=== PATIENT | female | born 1985 | race Caucasian/White ===

== ENCOUNTER 2018-10-24 09:37 | Outpatient (CLI) | payer OTHER ==
[~2018-10-24] VITALS: Ht 167.6 cm; Wt 68.5 kg
[~2018-10-24 09:37] MED LIST: AMBIEN 5MG TABLE5 MG PO; FISH OIL500 MG PO; FLONASE NASAL S16 GM NS; IBU800 M1 PO; MAGNESIUM100 MG; OSCAL 500 TAB500 MG PO; PRENATAL PLUS PO; SEROQUEL50 MG PO; ST. JOHN'S WOR250 MG PO; VIIBRYD10 MG PO; VITAMIN D1000 IU PO; ZYPREXA2.5 MG PO; ZYRTEC SYRUP1 MG/ML PO
--- NOTE | 2018-10-24 10:24 | NUR ---
This nurse called OB Charge for heart check per [facility] guidlines for women.
[2018-10-24] MEDS ORDERED: UNISOM25 MG PO (11:01)
[2018-10-24] MEDS ORDERED: PROAIR HFA0.09 MG/AC IH (11:02)
[2018-10-24] MEDS ORDERED: TYLENOL 325MG325 MG PO (11:02)
[2018-10-24] MEDS ORDERED: PATADAY 2.5 ML2.5 ML OU (11:03)
[2018-10-24] MEDS ORDERED: VITAMIN B-625 MG PO (11:04)
[2018-10-24 11:07] VITALS: BP 103/59; PULSE 83; TEMP 98.2
[2018-10-24] MEDS ORDERED: CEPHALEXIN500 M1 PO (12:10)
[2018-10-24 12:21] VITALS: BP 106/55; PULSE 72
[2018-10-24 12:44] VITALS: BP 112/68; PULSE 77
--- NOTE | 2018-10-24 12:59 | NUR ---
Discharge instructions given to pt.pt verbalizes understanding.Pt escorted out by this nurse.
== END 2018-10-24 13:02 | disposition home or self-care (01) ==
LOC: COL.CAR 09:37
DX: R55 Syncope and collapse (principal); J45.909 Unspecified asthma, uncomplicated; F29 Unspecified psychosis not due to a substance or known physiological condition; F43.10 Post-traumatic stress disorder, unspecified; Z79.51 Long term (current) use of inhaled steroids; Z82.49 Family history of ischemic heart disease and other diseases of the circulatory system; Z80.9 Family history of malignant neoplasm, unspecified; Z82.61 Family history of arthritis

== ENCOUNTER 2019-10-12 17:39 | Emergency (ER) | payer OTHER ==
[~2019-10-12] VITALS: Ht 167.6 cm; Wt 63.6 kg
[~2019-10-12 17:39] MED LIST changes: +CEPHALEXIN500 M1 PO; +PATADAY 2.5 ML2.5 ML OU; +PROAIR HFA0.09 MG/AC IH; +TYLENOL 325MG325 MG PO; +UNISOM25 MG PO; +VITAMIN B-625 MG PO
[2019-10-12 17:46] VITALS: TEMP 99.5
[2019-10-12 18:34] LABS: BASO % 0.4 % (0.0-2.0); EOS # 0.1 (0.0-0.7); EOS % 1.5 % (0-4.0); GRAN # 5.1 (1.4-6.5); GRAN % 75.4 % (42.2-75.2); HEMOGLOBIN 12.1 g/dl (12.5-16.0); LYMPH # 1.1 (1.2-3.4); LYMPH % 16.3 % (20.0-51.0); MEAN CELL VOLUME 91 fl (80.0-100.0); MEAN CORPUSCULAR HEMOGLOBIN 30 pg (27.0-31.0); MEAN CORPUSCULAR HGB CONC 33 g/dl (33.0-37.0); MEAN PLATELET VOLUME 9.4 fl (7.4-10.4); MONO # 0.4 (0.1-0.6); MONO % 6.3 % (1.7-9.3); PLATELET COUNT 238 K/mm3 (130-400); RED BLOOD COUNT 4.02 M/mm3 (4.10-5.30); REDCELL DISTRIBUTION WIDTH-CV 11.7 % (11.5-14.5)
[2019-10-12 18:40] LABS: HEMATOCRIT 36.5 % (37.0-47.0)
[2019-10-12 18:45] LABS: ALBUMIN 3.5 gm/dL (3.5-5.0); BILIRUBIN,TOTAL 0.3 mg/dL (0.0-1.0); CALCIUM 7.4 mg/dL (8.4-10.2); CREATININE, serum 0.59 (0.52-1.25); POTASSIUM 3.6 mmol/L (3.4-5.0); TOTAL PROTEIN 6.3 gm/dL (6.4-8.2)
[2019-10-12] MEDS ORDERED: CALCIUM 600 PLU1 TAB PO (19:37)
[2019-10-12] MEDS ORDERED: ZOFRAN 4MG T4 MG/TAB PO (19:40)
[2019-10-12 20:39] LABS: COLLECTION METHOD CLEAN CATCH
[2019-10-12 20:45] LABS: MUCOUS Present /lpf; PH 5 (5-8); SQUAMOUS EPITHELIAL 0-2 /hpf; URINE APPEARANCE Hazy; URINE BACTERIA None Seen /hpf; URINE BILIRUBIN Negative (NEGATIVE); URINE BLOOD Negative (NEGATIVE); URINE COLOR Yellow; URINE GLUCOSE Negative (NEGATIVE); URINE KETONE 1+ (NEGATIVE); URINE LEUKOCYTE ESTERASE Negative (NEGATIVE); URINE NITRATE Negative (NEGATIVE); URINE PROTEIN(semi-quant) Negative (NEGATIVE); URINE RBC 0-2 /hpf; URINE UROBILINOGEN Negative (NEGATIVE)
[2019-10-12 21:13] LABS: ACETAMINOPHEN < 10 ug/mL (10-30); SALICYLATE < 1.0 mg/dL
[2019-10-12 22:00] VITALS: BP 100/50; PULSE 77
[2019-10-12 22:00] LABS: TRICYCLIC ANTIDEPRESS URINE NEGATIVE
== END 2019-10-12 22:22 | disposition home or self-care (01) ==
LOC: COL.ER 17:39
PROVIDERS: Emergency Medicine
DX: K52.9 Noninfective gastroenteritis and colitis, unspecified (principal); R55 Syncope and collapse; E87.6 Hypokalemia; F32.9 Major depressive disorder, single episode, unspecified; Z79.51 Long term (current) use of inhaled steroids
CPT/HCPCS: J2405; J7030

== ENCOUNTER 2021-01-27 07:55 | Outpatient (CLI) | payer OTHER ==
[2021-01-27] VITALS (9 sets, daily range): BP systolic 95–110; BP diastolic 56–89; PULSE 71–100; TEMP 98.3
[~2021-01-27] VITALS: Ht 167.7 cm; Wt 61.3 kg
[~2021-01-27 07:55] MED LIST changes: +CALCIUM 600 PLU1 TAB PO; +ZOFRAN 4MG T4 MG/TAB PO; +ZYRTEC 10MG10 MG PO; -ZYRTEC SYRUP1 MG/ML PO
[2021-01-27] MEDS ORDERED: PATANOL OPHTHALM5 ML OU (08:50)
[2021-01-27] MEDS ORDERED: ZYPREXA2.5 MG PO (08:50)
[2021-01-27] MEDS ORDERED: K-TAB20 PO (08:51)
[2021-01-27] MEDS ORDERED: ZOLOFT 25MG25 MG PO (08:51)
[2021-01-27] MEDS ORDERED: VITAMIN D31000 I1 PO (08:52)
[2021-01-27] MEDS ORDERED: VITAMIN B12 781 TAB PO (08:52)
[2021-01-27] MEDS ORDERED: SINGULAIR 110 MG/TAB PO (08:53)
[2021-01-27] MEDS ORDERED: ALIGN10.5 MG PO (08:54)
[2021-01-27] MEDS ORDERED: PERIACTIN 4MG TA4 MG PO (08:56)
[2021-01-27] MEDS ORDERED: ZYPREXA ZYDIS5 MG PO (08:56)
[2021-01-27] MEDS ORDERED: DUO-KAPS1 CAP PO (08:57)
[2021-01-27] MEDS ORDERED: EPA FISH OIL1 SGL PO (08:59)
[2021-01-27] MEDS ORDERED: CEPHALEXIN500 M1 PO (10:15)
--- NOTE | 2021-01-27 11:45 | NUR ---
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 report from Chapo WALLACE. Loop insertion site covered with clean dry gauze dressing, ice pack applied. Pt c/o burning to IV site, however this resolved with flushing of IV. Pt remained awake and alert throughout her recovery. Pt was able to eat lunch with no problem. We reviewed dc, fu and rx instructions together and pt denied any questions. She has been ambulatory in room with steady gait. IV was dc'd with cath intact. Pt escorted to exit via wheelchair.
== END 2021-01-27 17:49 | disposition home or self-care (01) ==
LOC: COL.CAR 07:55
DX: Z45.09 Encounter for adjustment and management of other cardiac device (principal); R00.0 Tachycardia, unspecified; R00.2 Palpitations; J45.909 Unspecified asthma, uncomplicated; Z88.7 Allergy status to serum and vaccine; Z79.899 Other long term (current) drug therapy; F43.10 Post-traumatic stress disorder, unspecified; F29 Unspecified psychosis not due to a substance or known physiological condition; Z80.9 Family history of malignant neoplasm, unspecified; Z82.49 Family history of ischemic heart disease and other diseases of the circulatory system; Z82.61 Family history of arthritis
CPT/HCPCS: C1764; J0690; J2704

== ENCOUNTER 2022-12-23 10:25 | Day surgery (SDC) | payer OTHER ==
[~2022-12-23] VITALS: Ht 167.6 cm; Wt 66.9 kg
[~2022-12-23 10:25] MED LIST changes: +ALIGN10.5 MG PO; +DUO-KAPS1 CAP PO; +EPA FISH OIL1 SGL PO; +K-TAB20 PO; +PATANOL OPHTHALM5 ML OU; +PERIACTIN 4MG TA4 MG PO; +SINGULAIR 110 MG/TAB PO; +VITAMIN B12 781 TAB PO; +VITAMIN D31000 I1 PO; +ZOLOFT 25MG25 MG PO; +ZYPREXA ZYDIS5 MG PO
[2022-12-23 11:04] VITALS: BP 104/58; PULSE 70; TEMP 98.8
[2022-12-23] MEDS ORDERED: CEPHALEXIN500 M1 PO (13:33)
[2022-12-23 13:45] VITALS: BP 110/75; PULSE 63
[2022-12-23 14:00] VITALS: BP 110/70; PULSE 71
[2022-12-23 14:15] VITALS: BP 112/75; PULSE 63
--- NOTE | 2022-12-23 14:22 | NUR ---
Patient woke from anesthesia very disoriented and confused. Not aware of location, time or situation. Patient prior to loop removal, requested four point soft cuff restraints, per provider understanding, prior history. Patient has history of sever PTSD. Patient had to be further held and then moved from cath table bed with the aide of MADISON Sharma and MADISON Barrera. Patient did not tolerate this change well, additionally did not tolerate attempts for additional vitals. This nurse chose to abort vital signs at this time and take patient back to [facility] bed, for a more therapeutic enviornment and support from patient . Upon arrival, patient remained in this nurse's care, patient at bedside while this nurse kept eyes on patient from outside door. Patient to alert when they felt available to tolerate vitals. -[id number] Patient alert, oriented, visible signs of emotional distress. Oriented to self, time, place, and situation. Patient requested previously ordered milkshake, this nurse consented and provided as patient had clear swallow and speech. Patient asked for a few more moments to collect themselves before attempting vitals. -[id number] Patient allowed this nurse to take moderate sedation post vital signs. Remained at bedside throught vitals. Patient tolerated well. No further concerns at this time. Incision education given. Hand off report given to MADISON Hebert. -[id number].
[2022-12-23 14:30] VITALS: BP 113/70; PULSE 64
--- NOTE | 2022-12-23 15:11 | NUR ---
PT DISCHARGED FROM ROOM 14 AT 1505. PT WAS ACCOMPANIED BY UPON DISCHARGE, PT'S CHEST DRESSING WAS DRY AND INTACT AND PT WAS TOLERATING PO FOOD AND DRINK (CRACKERS AND MILKSHAKE). UPON ARRIVAL TO UNIT FOLLOWING PROCEDURE PT WAS CRYING AND OVERWHELMED STATING THAT SHE WOKE UP FROM A [facility] FOLLOWING ANESTHESIA, SHE REQUESTED THAT THE LIGHTS IN HER ROOM STAY ON AND A QUIET ENVIRONMENT BE MAINTAINED. DURING RECOVERY HER MOOD GREATLY IMPROVED AND SHE WAS BACK TO RELAXED AND FREE OF COMPLAINTS UPON DISCHARGE. PT'S VITAL SIGNS REMAINED WITHIN NORMAL LIMITS DURING RECOVERY. IV WAS REMOVED AND LR WAS STOPPED PRIOR TO DISCHARGE. PT AMBULATED WITHOUT ISSUE.
== END 2022-12-23 15:05 | disposition home or self-care (01) ==
LOC: COL.CAR 10:25
DX: Z45.09 Encounter for adjustment and management of other cardiac device (principal); G47.33 Obstructive sleep apnea (adult) (pediatric); I47.1 Supraventricular tachycardia; Z99.89 Dependence on other enabling machines and devices
CPT/HCPCS: J0690; J2704